=== PATIENT | female | born 1995 ===

== ENCOUNTER 2017-08-11 12:48 | Emergency (ER) | payer OTHER ==
[2017-08-11 14:10] VITALS: BP 94/58
--- NOTE | 2017-08-11 14:57 | UC ---
FLU HPI - HPI Summary HPI Summary: Patient presents to the with CC of fevers, sweats, chills, body aches, cough and congestion which started on Friday. Denies any rashes, urinary symptoms, back pain, sputum production, OROZCO. She appears well on arrival. Endorses sick contacts with the flu at school. Symptoms started 2 days ago but have improved. She has been otherwise healthy, takes no medications. - History of Current Complaint Chief Complaint: UCGeneralIllness Stated Complaint: CONGESTED,SORE THROAT,FEVER Time Seen by Provider: 08/11/17 14:28 Hx Obtained From: Patient Hx Last Menstrual Period: 06/20/18 ?: No Onset/Duration: Sudden Onset Severity Currently: Mild Severity Initially: Mild Pain Intensity: 0 Pain Scale Used: 0-10 Numeric Associated Signs & Symptoms: Positive: Fever, T Max - 100, F/C Related Hx: Possible Flu/Infectious Exposure - Risk Factors Influenza Risk Factors: Negative - Allergy/Home Medications Allergies/Adverse Reactions: Allergies Allergy/AdvReac Type Severity Reaction Status Date / Time No Known Allergies Allergy Verified 08/11/17 14:04 Home Medications: Home Medications Ibuprofen TAB* [Advil TAB*] 200 mg PO Q6H PRN 08/11/17 [History Confirmed ] PMH/Surg Hx/FS Hx/Imm Hx Previously Healthy: Yes - Surgical History Surgical History: None - Family History Known Family History: Positive: Unknown - Social History Occupation: Employed Full-time, Student Alcohol Use: None Substance Use Type: None Smoking Status (MU): Never Smoked Tobacco Have You Smoked in the Last Year: No Review of Systems Constitutional: Fever, Chills, Fatigue ENT: Sore Throat, Sinus Congestion, Sinus Pain/Tenderness Respiratory: Other Cardiovascular: Negative Musculoskeletal: Myalgia Neurological: Negative Psychological: Negative Is Patient Immunocompromised?: No All Other Systems Reviewed And Are Negative: Yes Physical Exam Triage Information Reviewed: Yes Appearance: Well-Appearing, No Pain Distress, Well-Nourished Vital Signs: Initial Vital Signs Temp 98.1 F 08/11/17 14:06 Pulse 71 08/11/17 14:06 Resp 16 08/11/17 14:06 BP 94/58 08/11/17 14:06 Pulse Ox 100 08/11/17 14:06 Vital Signs Reviewed: Yes Eye Exam: Normal Eyes: Positive: Conjunctiva Clear Neck exam: Normal Neck: Positive: Supple, Enlarged Nodes @ - cervical anterior Respiratory Exam: Normal Respiratory: Positive: Chest non-tender, Lungs clear Cardiovascular Exam: Normal Cardiovascular: Positive: RRR Abdomen Description: Positive: Nontender Musculoskeletal Exam: Normal Musculoskeletal: Positive: Strength Intact Neurological: Positive: Alert Psychological: Positive: Normal Response To Family Skin Exam: Normal Flu Course/Dx - Course Course Of Treatment: Flu swab obtained. VS stable on arrival. Flu B positive. Tamiflu sent to rx. - Differential Dx/Diagnosis Provider Diagnoses: Influenza B Discharge - Discharge Plan Condition: Stable Disposition: HOME Prescriptions: Oseltamivir CAP* [Tamiflu CAP*] 75 mg PO BID #10 cap Patient Education Materials: Influenza (ED) Referrals: No Primary Care Phys,NOPCP [Primary Care Provider] - Additional Instructions: Tamiflu 75mg twice daily x 5 days Rest Drink plenty of fluids
== END 2017-08-11 15:25 | disposition home or self-care (01) ==
LOC: UCEAST 12:48
DX: J11.1 Influenza due to unidentified influenza virus with other respiratory manifestations (principal)
CPT/HCPCS: 87502; 99202; G0463